=== PATIENT | female | born 1940 | race Caucasian/White ===

== ENCOUNTER 2019-10-12 13:23 | Inpatient (IN) | payer MEDICARE ==
[2019-10-12] MEDS ORDERED: Piperacillin/Tazobactam 4.5 GM VIAL ONE (13:51)
[2019-10-12] MEDS ORDERED: Sodium Chloride 0.9% 100 ML ONE (13:51)
[2019-10-12 14:11] LABS: Mean Corpuscular HGB CONC 33.6 g/dL (32.0-36.0); Mean Corpuscular Hemoglobin 32.9 pg (27.0-31.0); Mean Corpuscular Volume 97.8 fL (78.0-98.0); Mean Platelet Volume 9.3 fL (7.4-10.4); Platelet Count 68 thou/uL (130-400); Red Blood Cell (RBC) Count 3.36 mill/uL (4.20-5.40); White Blood Cell (WBC) Count 8.1 thou/uL (4.8-10.8)
--- NOTE | 2019-10-12 14:11 | RAD ---
Portable chest: HISTORY: Unresponsive COMPARISON: none FINDINGS: Lung asif are clear. Heart and mediastinum appear unremarkable. Vascularity is normal. Visualized osseous structures unremarkable. IMPRESSION: No acute finding
[2019-10-12 14:28] LABS: Band 18 % (5-11); Dohle Bodies SLIGHT; Lymphocytes 11 % (21-51); MDiff Complete? YES; Monocytes 1 % (0-10); Neutrophil 68 % (42-75); Platelet Morphology Comment Appears Decreased; Polychromasia SLIGHT = 2-3 cells (100X) (0-2/hpf); Reactive Lymphocytes 2 % (0-10); Toxic Granulation SLIGHT; Vacuoles SLIGHT
[2019-10-12 14:29] LABS: ALT (SGPT) 56 U/L (8-55); AST (SGOT) 139 U/L (5-34); Albumin 2.1 g/dL (3.4-4.8); Alkaline Phosphatase 51 U/L (40-110); Anion Gap 18 mmol/L (10-20); Bilirubin, Total 0.5 mg/dL (0.2-1.2); Calc. Creatinine Clearance 0 mL/min (70-130); Calcium 6.9 mg/dL (7.8-10.44); Carbon Dioxide 13 mmol/L (23-31); Chloride 118 mmol/L (98-107); Estimated GFR-MDRD 10; Globulin 2.6 g/dL (2.4-3.5); Glucose 98 mg/dL (83-110); Potassium 4.3 mmol/L (3.5-5.1); Protein, Total 4.7 g/dL (6.0-8.3); Sodium 145 mmol/L (136-145)
[2019-10-12 14:30] LABS: Bacteria/HPF 4+ HPF (None Seen); Bilirubin 1+ (Negative); Blood, Urine 1+ (Negative); Clarity Turbid (Clear); Glucose, Urine (Dipstick) Normal (Negative); Leukocyte 500 Leu/uL (Negative); Nitrite 1+ (Negative); Protein, Urine (Dipstick) 100 mg/dL (Neg-Trace); RBC/HPF 0-3 HPF (0-3); Urobilinogen Normal mg/dL (Less than 2); WBC/HPF Greater than 50 HPF (0-3)
[2019-10-12 14:44] LABS: BUN (Urea Nitrogen) 135 mg/dL (9.8-20.1)
--- NOTE | 2019-10-12 15:21 | CT ---
Head CT without contrast 10/12/2019: COMPARISON: 03/13/2011 HISTORY: Lupus, urinary tract infection, altered mental status and confusion TECHNIQUE: Axial CT imaging at 5 mm intervals from vertex through skull base without contrast FINDINGS: The imaged paranasal sinuses and mastoid air cells are well aerated. No displaced calvarial fracture. No intracranial hemorrhage, midline shift, mass effect, or ventricular enlargement. IMPRESSION: Stable head CT-no acute findings.
[2019-10-12] MEDS ORDERED: CCU Electrolyte Replacement 1 EACH IVPB ONE (16:53)
[2019-10-12] MEDS ORDERED: Norepinephrine 8 MG/0.9% NS 250 ML IVPB PRN (16:53)
[2019-10-12] MEDS ORDERED: SYSTANE 3.5 GM TUBE EA EYE PRN (16:53)
[2019-10-12] MEDS ORDERED: Magnesium Oxide 400 MG TAB PO PRN ×2 (16:58)
[2019-10-12] MEDS ORDERED: Potassium Phosphate 15 MMOL in Sodium Chloride 0.9% 250 ML 250 ML IV PRN (16:58)
[2019-10-12] MEDS ORDERED: Potassium Chloride 40 MEQ in Premix Bag 1 BAG IVPB PRN (16:58)
[2019-10-12] MEDS ORDERED: Potassium Phosphate 9 MMOL in Sodium Chloride 0.9% 100 ML IVPB PRN (16:58)
[2019-10-12] MEDS ORDERED: Magnesium 2 GM/50 ML 2 GM in Premix Bag 1 BAG IVPB PRN (16:58)
[2019-10-12] MEDS ORDERED: Potassium Chloride 20 MEQ TAB PO PRN (16:58)
[2019-10-12] MEDS ORDERED: Potassium Phosphate 12 MMOL in Sodium Chloride 0.9% 250 ML 250 ML IV PRN (16:58)
[2019-10-12] MEDS ORDERED: PHOS-NAK 1 PKT PACK PO PRN ×2 (16:58)
[2019-10-12] MEDS ORDERED: CCU ELECTROLYTE REPLACEMENT PROTOCOL FS PRN (16:58)
[2019-10-12] MEDS ORDERED: Potassium Chloride 40 MEQ in Sodium Chloride 0.9% 250 ML 250 ML IVPB PRN (16:58)
--- NOTE | 2019-10-12 17:04 | PDOC.FPRHP ---
- History of Present Illness Chief Complaint: AMS History of Present Illness: Pt is a 79 yo F with a history Lupus, HTN, GERD, IBS, and Dementia who presents via EMS for AMS. Pt was fine 3 weeks ago. She slowly began forgetting things and misplacing things. Last week, they went to her PCP and he told her to go to the ED. There they gave her pills (Azo) and sent her home. She progressively got worse over the last week. Today, the home health nurse came to see her. She came out after examining her and said she could not get a blood pressure and she had a fever, so they should call EMS. ED Course: EMS gave 4L of fluid on there way to the hospital. In the ED, they gave her 2 more liters. She also got Vanc and Zosyn. Cre: 4.26, LFTs elevated, UA showed LE: 500, Nitrites: 1+, Protein: 100, Bacteria: 4+. Bicarb was 13. K was 4.3 CXR: NAF CT Head: NAF Flu: Neg BCx & UCx ordered - Allergies/Adverse Reactions Allergies Allergy/AdvReac Type Severity Reaction Status Date / Time No Allergy Information Allergy Unverified 10/12/19 15:31 Available - History PMHx: HTN, Lupus GERD, IBD, Dementia PSHx: L Femur Screws FHx: HTN, Stroke, CRC, Blood Clots, DM Social: No alcohol, tobacco, or recreational drugs. - Review of Systems ROS unobtainable: due to mental status - Vital signs BP: 90/58 HR: 86 RR: 22 Tmax: 98.2 Pox: 97% on 3L Wt: 54.4 kg - Physical Exam -Constitutional: Lethargic HEENT: normocephalic and atraumatic, PERRLA, conjunctiva clear, normal nasal mucosa, oropharynx clear Neck: trachea midline, no LAD, no JVD Heart: RRR, normal S1/S2, no murmurs/rubs/gallops, pulses present, no edema Lungs: CTAB, good air movement, no rales/rhonchi, no wheezing Abdomen: soft, non-tender, bowel sounds present -Musculoskeletal: Decorticate posturing -Neurological: Unable to obtain due to AMS Skin: no rash/lesions, no jaundice Heme/Lymphatic: no unusual bruising or bleeding, no purpura, no petechia -Psychiatric: Unable to assess. FMR H&P: Results - Labs Result Diagrams: 10/12/19 13:50 10/12/19 13:50 Lab results: WBC 8.1 thou/uL (4.8-10.8) 10/12/19 13:50 Hgb 11.0 g/dL (12.0-16.0) L 10/12/19 13:50 Hct 32.8 % (36.0-47.0) L 10/12/19 13:50 MCV 97.8 fL (78.0-98.0) 10/12/19 13:50 Plt Count 68 thou/uL (130-400) L 10/12/19 13:50 Band Neuts % (Manual) 18 % (5-11) H 10/12/19 13:50 Sodium 145 mmol/L (136-145) 10/12/19 13:50 Potassium 4.3 mmol/L (3.5-5.1) 10/12/19 13:50 Chloride 118 mmol/L (98-107) H 10/12/19 13:50 Carbon Dioxide 13 mmol/L (23-31) L 10/12/19 13:50 BUN 135 mg/dL (9.8-20.1) H 10/12/19 13:50 Creatinine 4.26 mg/dL (0.6-1.1) H 10/12/19 13:50 Glucose 98 mg/dL (83-110) 10/12/19 13:50 Lactic Acid 2.0 mmol/L (0.5-2.2) 10/12/19 13:50 Calcium 6.9 mg/dL (7.8-10.44) L 10/12/19 13:50 Total Bilirubin 0.5 mg/dL (0.2-1.2) 10/12/19 13:50 AST 139 U/L (5-34) H 10/12/19 13:50 ALT 56 U/L (8-55) H 10/12/19 13:50 Alkaline Phosphatase 51 U/L (40-110) 10/12/19 13:50 Serum Total Protein 4.7 g/dL (6.0-8.3) L 10/12/19 13:50 Albumin 2.1 g/dL (3.4-4.8) L 10/12/19 13:50 Urine Ketones Negative mg/dL (Negative) 10/12/19 14:00 Urine Blood 1+ (Negative) A 10/12/19 14:00 Urine Nitrite 1+ (Negative) A 10/12/19 14:00 Ur Leukocyte Esterase 500 Sd/uL (Negative) A 10/12/19 14:00 Urine RBC 0-3 HPF (0-3) 10/12/19 14:00 Urine WBC Greater than 50 HPF (0-3) A 10/12/19 14:00 Ur Squamous Epith Cells 4-6 HPF (0-3) A 10/12/19 14:00 Urine Bacteria 4+ HPF (None Seen) A 10/12/19 14:00 FMR H&P: A/P - Problem List (1) DIMA (acute kidney injury) Current Visit: Yes Status: Acute Code(s): N17.9 - ACUTE KIDNEY FAILURE, UNSPECIFIED (2) Septic shock Current Visit: Yes Status: Acute Code(s): A41.9 - SEPSIS, UNSPECIFIED ORGANISM; R65.21 - SEVERE SEPSIS WITH SEPTIC SHOCK (3) Transaminitis Current Visit: Yes Status: Acute Code(s): R74.0 - NONSPEC ELEV OF LEVELS OF TRANSAMNS & LACTIC ACID DEHYDRGNSE (4) UTI (urinary tract infection) Current Visit: Yes Status: Acute (5) DVT (deep venous thrombosis) Current Visit: Yes Status: Acute Code(s): I82.409 - ACUTE EMBOLISM AND THOMBOS UNSP DEEP VN UNSP LOWER EXTREMITY (6) Lupus Current Visit: Yes Status: Acute Code(s): M32.9 - SYSTEMIC LUPUS ERYTHEMATOSUS, UNSPECIFIED (7) HTN (hypertension) Current Visit: Yes Status: Acute Code(s): I10 - ESSENTIAL (PRIMARY) HYPERTENSION (8) GERD (gastroesophageal reflux disease) Current Visit: Yes Status: Acute Code(s): K21.9 - GASTRO-ESOPHAGEAL REFLUX DISEASE WITHOUT ESOPHAGITIS (9) Dementia Current Visit: Yes Status: Acute Code(s): F03.90 - UNSPECIFIED DEMENTIA WITHOUT BEHAVIORAL DISTURBANCE (10) IBS (irritable bowel syndrome) Current Visit: Yes Status: Acute - Plan Pt is a 79 yo F with a history Lupus, HTN, GERD, IBS, and Dementia who presents via EMS for AMS. 1. Septic Shock 2/2 UTI UA showed LE: 500, Nitrites: 1+, Protein: 100, Bacteria: 4+ * BP: 90s/50s * Tried to put in Central line on L&R IJ, R Femoral * DVT Present in L Femoral * Given 6L between EMS & ED * Will start Levophed * Try to obtain central line again once pt is re-hydrated * LA: 2 * Ordered ABG, Coag Panel, Trop, Procal * Consulted Pulm, appreciate recs. * Currently on Vanc & Zosyn in the ED, will continue * Called pharmacy to renally dose * BCx & UCx ordered * Flu negative 2. Transaminitis AST: 139, ALT: 56 * Most likely 2/2 to Septic Shock * Will monitor 3. DVT Plt: 68 * DVT present in L femoral vein * Cre: 4.26 * B/l LE US to assess DVT 4. DIMA Cre: 4.26 * Will give her 1L * NS @ 100 5. HTN BP: 90s/50s * Will hold Carvedilol & ASA 6. Dementia Unable to assess due to unresponsiveness 7. GERD Not currently on any medications at home * Started Famotidine 8. IBS Not currently on any medications Code Status: Chemical Code Diet: NPO currently DVT PPx: SCDs GI PPx: Famotidine Lines: Peripheral, Unable to obtain central line. PCP: Bernard Beckham Dispo: Inpt ICU, LOS > 48H. Ordered ABG and consulted Pulm. Will continue with Vanc & Zosyn and continue to hydrate. FMR H&P: Upper Level - Pertinent history 79 yo F with PMH lupus, HTN, mild dementia, and frequent UTIs presents from home. Home nurse came to check on her, and sent her to the hospital because she could not get a blood pressure and she was having a fever. She was recently seen at [facility] for UTI, and sent home and azo per family. Her mentation and strength have been worsening for the past 3 weeks. EMS: she was tachycardic, minimally responsive. With EMS and in the ED, she was given 6 L of NS. Her blood pressures were borderline with MAPs in the 60s to 70s, central line was attempted but unsuccessful. She was started on vanc and zosyn. - Pertinent findings General: Weak, pale elderly female. Keeps her eyes closed during exam. Lungs: BCTA Heart: RRR, no murmurs Extremities: Pale, cool, cap refill > 2 seconds - Plan Date/Time: 10/12/19 1700 Lucy Ochoa MD, have evaluated this patient and agree with findings/plan as outlined by video editing internship resident. Pertinent changes/additions are listed here. Septic Shock 2/2 UTI -UA positive. Severe DIMA, elevated liver enzymes. Influenza negative. Maps borderline in 60s-70s. -Blood and urine cultures pending -Continue vanc and zosyn, pharmacy to dose both due to severe DIMA -Trop pending, procal pending -Central line unsuccessful: give addition 1 L NS, then NS @ 100, may need to attempt central line after more fluids -continue to monitor blood pressures, start levophed through peripheral line -Admit to CCU, pulm Dr. Louis consulted -Stat ABG pending -Guarded prognosis -AM labs pending DVT LLE -Coags pending -official US BLE pending -consider anticoagulation, however low platelets (68) and severe DIMA in setting of shock liver Severe DIMA -Cr 4.26 -s/p 6 L IVF -1 additional unit NS, then NS @ 100 ml/hr Thrombocytopenia -Consider possible DIC -Plt 68 -Coags pending Code: chemical code only Dispo: Guarded. Admit to CCU. Continue vanc and zosyn. Blood and urine cultures pending. Monitor blood pressures, consider attempting central line again after more fluids. Addendum - Attending - Attending Attestation Date/Time: 10/12/19 191 I personally evaluated the patient and discussed the management with Dr. Jhon Suazo I agree with the History, Examination, Assessment and Plan documented above with any addition or exceptions noted below - 79 yo F with a history Lupus, HTN , GERD, IBS, and Dementia who presents via EMS for AMS. Pt was fine 3 weeks ago. She slowly began forgetting things and misplacing things. Last week, they went to her PCP and he told her to go to the ED. There they gave her pills (Azo ) and sent her home. She progressively got worse over the last week. Today, the home health nurse came to see her. She came out after examining her and said she could not get a blood pressure and she had a fever, so they should call EMS. Patient received 4L crystalloid via EMS and additional 2 L in ER. PMH/PSH/ Meds/SH reviewed with resdient and agree with documentation. P80 BP 96/62 RR21 94% Exam repeated by me and agree with resident's findings except has multiple areas of bruising including neck, forearms and deep tissue injury on right medial heel and buttocks. Labs: Bg=086, K=4.3, Qy=244, CO2=13, BUN/Py=059/ 4.26, Gluc=98, WBC=8.1, H/H=11/32.8, Plt=68, Diff=68N/18B/11L, Procal=1.68, Lactic acid=2.0, PT=18.8, INR=1.6, PTT=28, AST/JZK=245/56, U/A= (+) nitrote, (+ ) blood, >50 WBC, 4+ bact; CXR- negative A/P: 1) Severe sep[sis secondary to UTI - Admit to ICU; hypotension improved with fluids; continue to monitor closely. Midline access for pressors if needed. Blood/urine cultures pending. Continue Vanc and Zosyn. 2) DIMA - continue IVF; monitor I/Os 3) Left DVT - will start heparin per protocol. 4) Elevated transminases- most likely secondary to shock liver; continue to monitor closely.
[2019-10-12 17:37] LABS: INR-International Normal Ratio 1.6; Prothrombin Time 18.8 SEC (12.0-14.7)
[2019-10-12 17:44] LABS: Troponin I 0.151 ng/mL (< 0.028)
[2019-10-12] MEDS ORDERED: Piperacillin/Tazobactam 3.375 GM in Sodium Chloride 0.9% 100 ML IVPB SCH (18:00)
--- NOTE | 2019-10-12 18:21 | ULT ---
BILATERAL LOWER EXTREMITY VENOUS DOPPLER WITH SPECTRAL ANALYSIS AND COLOR FLOW EVALUATION: 10/12/19 HISTORY: Patient with confusion and altered mental status. Suspected DVT in lower extremity. FINDINGS: Veras scale, color flow, Doppler evaluation, and spectral analysis of the bilateral lower extremity ve nous structures is performed with 2D imaging. Bilateral lower extremity femoral, superficial femoral, popliteal, most proximal greater saphenous and profunda femoral veins are imaged. There is increased luminal echogenicity and decreased lumen compressibility as well as absence of flaca w seen within the left lower extremity common femoral and superficial femoral as well as profunda fem oral veins. There is minimal flow seen suggesting occlusive DVT. There is minimal flow seen within the left lower extremity popliteal and posterior tibial veins suggesting nonocclusive thrombus at these levels. There is decreased lumen compressibility and echogenic material along the dependent portion of the wa ll of the right lower extremity common femoral vein suggestive of nonocclusive DVT. The exact age of this thrombus is difficult to determine. There is otherwise normal lumen compressibility and flow thr oughout the remainder of the right lower extremity deep venous structures. IMPRESSION: 1. Occlusive DVT involving the left lower extremity common femoral, superficial femoral, and pro murtzaa femoral veins with nonocclusive thrombus in the left lower extremity popliteal and likely poste rior tibial veins. 2. Nonocclusive thrombus right lower extremity common femoral vein with echogenic material seen along the posterior aspect of the lumen of the common femoral vein, and the exact age of this thrombu s is difficult to determine. 3. These findings were discussed with Suyapa, [facility] as well as the attending physician at this time by Maryanne, the podiatric surgeon. This is doc umented in the patient's jacket with date of 10/12/19 and time stamp of 1740 hours. POS: [facility]
[2019-10-12] MEDS ORDERED: Sodium Chloride 0.9% 1,000 ML IV SCH (18:47)
[2019-10-12] MEDS ORDERED: Acetaminophen 325 MG TAB PO PRN (18:47)
[2019-10-12] MEDS ORDERED: Ondansetron ODT 4 MG TAB PO PRN (18:47)
[2019-10-12] MEDS ORDERED: Acetaminophen 650 MG Suppository PR PRN (18:47)
[2019-10-12] MEDS ORDERED: Heparin 25,000 units/D5W 500 ML IVPB SCH (19:00)
[2019-10-12] MEDS ORDERED: Heparin 10,000 UNITS/ 10 ML VIAL SLOW IVP SCH (19:00)
--- NOTE | 2019-10-12 19:01 | PDOC.BPN ---
- Brief Progress Note Checked on patient since arrival to CCU. Peaked t waves noted on telemetry. EKG and ABG ordered. Heparin ordered for DVT therapy per protocol. Midline IV access ordered. Care plan and orders discussed with nurses and RT.
[2019-10-12 19:27] LABS: Actual Bicarbonate (HCO3a) 12.3 mEq/L (22-28); Base Excess (BEa) -12.9 mEq/L (-2.0 to +3.0); CO2 Tension 26.7 mmHg (35.0-45.0); Carboxyhemoglobin (COHb) 0.5 gm% (0.0-3.0); O2 Tension (PaO2) 70.6 mmHg (> 70.0); Potassium - ABG Lab 3.64 mmol/L (3.70-5.30); pH, Arterial 7.28 (7.35-7.45)
[2019-10-12 19:32] LABS: ALV-art Gradient 95.665 (0-20); Puncture Site RBR
[2019-10-12] MEDS: Famotidine 20 MG TAB PO SCH (20:03)
[2019-10-12] MEDS: Sodium Bicarbonate 100 MEQ in Sodium Chloride 0.45% 1,000 ML IV SCH ×3 (20:23→22:00)
[2019-10-12 20:32] LABS: Hemoglobin 10.9 g/dL (12.0-16.0); Platelet Count 69 thou/uL (130-400)
[2019-10-12 20:37] LABS: INR-International Normal Ratio 1.7; PTT 31.2 SEC (22.9-36.1); Prothrombin Time 19.9 SEC (12.0-14.7)
--- NOTE | 2019-10-12 20:37 | CON ---
DATE OF CONSULTATION: HISTORY OF PRESENT ILLNESS: Nancy Munoz is a 79-year-old female, who presented to the ER after home health nurse encouraged family to take her to the emergency room. She had hypotension and altered mental status. Her hypotension is improved with aggressive volume resuscitation, but still has an altered mental status. She was recently treated at [facility] for UTI. She has sludge in her Jacobo. Urinalysis showed greater than 50 white cells per high-powered field. She has been admitted with a tentative diagnosis of urinary tract sepsis. Multiple attempts at getting central venous access were unsuccessful. A clot was identified in the femoral vein on both lower extremities. Internal jugular attempts were unsuccessful. They could cannulate the internal jugular vein I am told, but blood will quickly clot off. Nurses are attempting to get a midline. She does have some peripheral access, but very small IVs. PAST MEDICAL HISTORY: She has received her care at [facility] prior to this admission, so there is no recent past medical history at this hospital. In the [facility], she was hospitalized here in 2010 with near syncope associated with palpitations. She has a history of hypertension, reflux disease, irritable bowel, migraine headaches, and degenerative arthritis. She has had a tubal ligation, tonsillectomy, adenoidectomy, lysis of pelvic adhesions, and bunionectomy in the past. ALLERGIES: OLD RECORDS SHOW ALLERGIES TO CEPHALOSPORINS, SULFA, AND QUINOLONES. FAMILY HISTORY: Positive for vascular disease and cancer. SOCIAL HISTORY: According to old record, she was a smoker and drinker. She is here in 2010, she is living in [place]. She is and her retired. PHYSICAL EXAMINATION: VITAL SIGNS: Currently, her blood pressure is in mid 90s, heart rates in 100, respiratory rates in the 20s. HEENT: She is in no distress. She has her eyes closed. She did not open her eyes with stimulation. NECK: Without lymphadenopathy. LUNGS: Remarkable for clear breath sounds. HEART: Regular rhythm. ABDOMEN: Nondistended, but firm. DIAGNOSTIC DATA: Chest x-ray is clear. Venogram showed bilateral lower extremity deep vein thrombi and heparin drip is being started. LABORATORY DATA: White count 8.1, hemoglobin 11.0, platelets 68,000. Sodium 145, potassium 4.3, chloride 118, bicarb 13, BUN 135, creatinine 4.26. Blood gas shows pH 7.28, CO2 of 26, PO2 of 70. Some bicarb will be infused slowly through piggyback. IMPRESSION: 1. Intravascular volume depletion on top of what may be urinary tract sepsis given her recent history and the appearance of her urine. 2. Metabolic acidosis secondary to acute renal insufficiency on top of probable chronic kidney disease combined with low-flow state secondary to intravascular volume depletion and sepsis. 3. She is a do not intubate. The patient can code only. Does not appear that we need pressors at this point. I agree with broad antimicrobial therapy and heparin drip. We will follow along with the other physician. Job ID: [id number]
[2019-10-12] MEDS: Sodium Chloride 0.9% 1,000 ML IV SCH (20:41)
[2019-10-12] MEDS: Famotidine/PF 20 mg/2ml Vial SLOW IVP SCH (20:47)
[2019-10-12 20:58] LABS: Troponin I 0.413 ng/mL (< 0.028)
[2019-10-12] MEDS: Piperacillin/Tazobactam 2.25 GM in Sodium Chloride 0.9% 100 ML IVPB SCH (22:50)
--- NOTE | 2019-10-13 00:03 | ULT ---
RENAL SONOGRAM: 10/12/19 HISTORY: UTI, sepsis. COMPARISON: None. FINDINGS: The right kidney measures 10 cm x 5.3 cm. There is an anechoic cystic structure at the inferior pole right kidney measuring 3.2 cm demonstrating characteristics most compatible with a cyst. No hydroneph rosis or renal calculus is seen on the right. The left kidney measures 9.7 cm x 5.6 cm. No renal mass, renal calculus or hydronephrosis is seen on the left. Jacobo catheter is present within the urinary bladder, and the urinary bladder is mostly decompressed. IMPRESSION: 1. No evidence of hydronephrosis. 2. Right renal cyst. POS: [facility]
[2019-10-13 03:29] LABS: Hemoglobin 10.1 g/dL (12.0-16.0); MDiff Complete? YES; Mean Corpuscular HGB CONC 33.7 g/dL (32.0-36.0); Mean Corpuscular Hemoglobin 32.7 pg (27.0-31.0); Mean Corpuscular Volume 97.1 fL (78.0-98.0); Platelet Count 65 thou/uL (130-400); RBC Distribution Width 12.1 % (11.5-14.5); Red Blood Cell (RBC) Count 3.08 mill/uL (4.20-5.40); White Blood Cell (WBC) Count 10.1 thou/uL (4.8-10.8)
[2019-10-13 03:30] LABS: Band 13 % (5-11); Hypochromia SLIGHT = 6-15 cells (100X) (0-5/hpf); Lymphocytes 4 % (21-51); Monocytes 1 % (0-10); Neutrophil 82 % (42-75); Platelet Morphology Comment Appears Decreased
[2019-10-13 03:34] LABS: Troponin I 0.283 ng/mL (< 0.028)
[2019-10-13 03:35] LABS: ALT (SGPT) 215 U/L (8-55); AST (SGOT) 497 U/L (5-34); Albumin 1.7 g/dL (3.4-4.8); Alkaline Phosphatase 57 U/L (40-110); Anion Gap 10 mmol/L (10-20); BUN (Urea Nitrogen) 120 mg/dL (9.8-20.1); Bilirubin, Total 0.3 mg/dL (0.2-1.2); Calc. Creatinine Clearance 13 mL/min (70-130); Calcium 6.7 mg/dL (7.8-10.44); Carbon Dioxide 19 mmol/L (23-31); Chloride 121 mmol/L (98-107); Estimated GFR-MDRD 17; Globulin 2.3 g/dL (2.4-3.5); Glucose 114 mg/dL (83-110); Potassium 3.3 mmol/L (3.5-5.1); Sodium 147 mmol/L (136-145)
[2019-10-13 03:53] LABS: PTT Greater than 250.0 SEC (22.9-36.1)
[2019-10-13] MEDS: Sodium Chloride 0.9% 1,000 ML IV SCH ×2 (05:09→15:22)
[2019-10-13] MEDS: Piperacillin/Tazobactam 2.25 GM in Sodium Chloride 0.9% 100 ML IVPB SCH ×3 (05:09→21:35)
[2019-10-13 06:35] LABS: Magnesium 1.9 mg/dL (1.6-2.6); Phosphorus 4.2 mg/dL (2.3-4.7)
--- NOTE | 2019-10-13 07:56 | PRG ---
DATE OF SERVICE: 10/13/2019 SUBJECTIVE: This patient remains in the CCU. She is on a heparin drip. She does not talk very much. She is in pain throughout. OBJECTIVE: VITAL SIGNS: On exam, temperature is 98.8, pulse 74, and blood pressure 82/47. Intake for 24 hours 2415, output 1140, not including the amount administered prior to admission. HEENT: Marked for bitemporal wasting. Oropharynx is dry. NECK: No adenopathy or JVD. LUNGS: Clear to auscultation. CARDIAC: S1 and S2. Regular. ABDOMEN: Soft and nontender to palpation. EXTREMITIES: She has pressure ulcers over both heels that were present at the time of admission. LABORATORY DATA: White count 10.1, hematocrit 29.9, and platelet count 65. PTT is 112.5. Sodium 147, potassium 3.3, chloride 121, CO2 of 19, BUN 120, creatinine 2.6, and glucose 114. AST 497, ALT 215. ASSESSMENT: 1. Bilateral deep venous thrombosis. 2. Urosepsis. 3. Severely volume depleted. 4. Thrombocytopenia. RECOMMENDATIONS: 1. We would consider changing the patient to Arixtra given the patient is thrombocytopenic and on heparin. The alternative would be to watch the platelet count very closely. 2. Continue hydration. 3. Continue antibiotics for presumed sepsis and consolidate once results of cultures are known. Job ID: [id number]
--- NOTE | 2019-10-13 08:00 | PDOC.FM ---
- Subjective Subjective: no acute events overnight. Pt has no complaints but seems to be delirious - Objective Vital Signs & Weight: Vital Signs (12 hours) Temp 10/12/19 21:00 94.3 F L Weight Weight 53.8 kg Most Recent Monitor Data Heart Rate from ECG 74 NIBP 82/47 NIBP BP-Mean 58 Respiration from ECG 18 SpO2 100 I&O: 10/12/19 10/13/19 10/14/19 06:59 06:59 06:59 Intake Total 2415 Output Total 1140 Balance 1275 Result Diagrams: 10/13/19 03:05 10/13/19 03:05 Phys Exam - Physical Examination Constitutional: NAD HEENT: moist MMs, sclera anicteric Neck: no JVD, supple Respiratory: no wheezing, no rales Cardiovascular: RRR, no significant murmur Gastrointestinal: soft, no distention Musculoskeletal: no edema, pulses present Neurological: non-focal, moves all 4 limbs Deviation from normal: A and O to person only Skin: no rash, normal turgor Dx/Plan (1) DIMA (acute kidney injury) Code(s): N17.9 - ACUTE KIDNEY FAILURE, UNSPECIFIED Status: Acute (2) DVT (deep venous thrombosis) Code(s): I82.409 - ACUTE EMBOLISM AND THOMBOS UNSP DEEP VN UNSP LOWER EXTREMITY Status: Acute (3) Dementia Code(s): F03.90 - UNSPECIFIED DEMENTIA WITHOUT BEHAVIORAL DISTURBANCE Status: Acute (4) GERD (gastroesophageal reflux disease) Code(s): K21.9 - GASTRO-ESOPHAGEAL REFLUX DISEASE WITHOUT ESOPHAGITIS Status: Acute (5) HTN (hypertension) Code(s): I10 - ESSENTIAL (PRIMARY) HYPERTENSION Status: Acute (6) IBS (irritable bowel syndrome) Status: Acute (7) Septic shock Code(s): A41.9 - SEPSIS, UNSPECIFIED ORGANISM; R65.21 - SEVERE SEPSIS WITH SEPTIC SHOCK Status: Acute (8) Transaminitis Code(s): R74.0 - NONSPEC ELEV OF LEVELS OF TRANSAMNS & LACTIC ACID DEHYDRGNSE Status: Acute (9) UTI (urinary tract infection) Status: Acute - Plan Plan: Septic Shock 2/2 UTI A- UA positive. Severe DIMA, elevated liver enzymes. Influenza negative. Maps borderline in 60s-70s on admission which have improved. Blood and urine cultures pending. Central line unsuccessful: give addition 1 L NS, then NS @ 100 , may need to attempt central line after more fluids P- Continue vanc and zosyn, pharmacy to dose both due to severe DIMA -continue to monitor blood pressures -LR at 100hr -f/u cultures -will start pressors if pt worsens -Guarded prognosis DVT LLE A- US shows bilateral femoral DVTs. L is completely occluded, R is partial. heparin protocol started. PTT was supratherapeutic early this AM but in range on recheck. P- continue heparin per protocol. As kidney function improves may switch to fondaparineaux Severe DIMA A- 2/2 septic shock. Improved. Cr 4.26 -> 2.6. s/p 7 L IVF P- continue NS @ 100 ml/hr -continue to monitor Thrombocytopenia A- Consider possible DIC. Plt 68 P- will continue to monitor, adjust anticoagulation as necessary Transaminitis -likely 2/2 septic shock. Will continue to monitor Dementia -MD aware GERD -continue famotidine Code: chemical code only Dispo: Guarded. Admit to CCU. Continue vanc and zosyn. Blood and urine cultures pending. Monitor blood pressures, consider attempting central line again after more fluids. Addendum - Attending - Attending Attestation Date/Time: 10/13/19 1121 I personally evaluated the patient and discussed the management with Dr. Kidd. I agree with the History, Examination, Assessment and Plan documented above with any addition or exceptions noted below. patient will answer yes/no to questions this morning but not otherwise conversational. MAP stable off pressors. Continue abx and consider adding steroids if BP remains low. Will keep heparin on for now and closely monitor platelet count. Patient is stabilizing but overall disposition is guarded.
[2019-10-13] MEDS ORDERED: Vancomycin HCl 1 GM in Premix Bag 1 BAG IVPB SCH (14:30)
[2019-10-13 15:00] LABS: PTT 122.3 SEC (22.9-36.1)
[2019-10-13] MEDS ORDERED: Vancomycin HCl 500 MG in Sodium Chloride 0.9% 100 ML IVPB SCH (16:00)
[2019-10-13] MEDS: Famotidine 20 MG TAB PO SCH (21:34)
[2019-10-13] MEDS: Famotidine/PF 20 mg/2ml Vial SLOW IVP SCH (21:34)
[2019-10-14] MEDS: Sodium Chloride 0.9% 1,000 ML IV SCH (01:34)
[2019-10-14] MEDS: Piperacillin/Tazobactam 2.25 GM in Sodium Chloride 0.9% 100 ML IVPB SCH ×3 (05:51→21:19)
[2019-10-14 06:38] LABS: Band 18 % (5-11); Hemoglobin 10.2 g/dL (12.0-16.0); Lymphocytes 5 % (21-51); MDiff Complete? YES; Mean Corpuscular HGB CONC 33.6 g/dL (32.0-36.0); Mean Corpuscular Hemoglobin 32.5 pg (27.0-31.0); Mean Corpuscular Volume 96.9 fL (78.0-98.0); Mean Platelet Volume 9.5 fL (7.4-10.4); Monocytes 5 % (0-10); Neutrophil 72 % (42-75); Platelet Count 77 thou/uL (130-400); Platelet Morphology Comment Appears Decreased; RBC Distribution Width 12.2 % (11.5-14.5); Red Blood Cell (RBC) Count 3.14 mill/uL (4.20-5.40); White Blood Cell (WBC) Count 7.9 thou/uL (4.8-10.8)
[2019-10-14 06:41] LABS: ALT (SGPT) 130 U/L (8-55); AST (SGOT) 141 U/L (5-34); Albumin 1.8 g/dL (3.4-4.8); Alkaline Phosphatase 54 U/L (40-110); Anion Gap 11 mmol/L (10-20); BUN (Urea Nitrogen) 102 mg/dL (9.8-20.1); Bilirubin, Total 0.4 mg/dL (0.2-1.2); Calc. Creatinine Clearance 21 mL/min (70-130); Calcium 7.8 mg/dL (7.8-10.44); Carbon Dioxide 18 mmol/L (23-31); Chloride 127 mmol/L (98-107); Estimated GFR-MDRD 25; Globulin 2.5 g/dL (2.4-3.5); Glucose 102 mg/dL (83-110); Potassium 3.9 mmol/L (3.5-5.1); Protein, Total 4.3 g/dL (6.0-8.3); Sodium 152 mmol/L (136-145)
--- NOTE | 2019-10-14 07:43 | PDOC.FM ---
- Subjective Subjective: Seen at bedside this morning. Pt is arousable, but goes back to sleep when not being questioned. There were no acute events over night. No concerns from nursing. - Objective Vital Signs & Weight: Vital Signs (12 hours) Pulse Ox 10/13/19 20:00 100 Weight Admit Weight 53.524 kg Weight 54.7 kg Most Recent Monitor Data Heart Rate from ECG 73 NIBP 104/62 NIBP BP-Mean 76 Respiration from ECG 16 SpO2 100 I&O: 10/13/19 10/14/19 10/15/19 06:59 06:59 06:59 Intake Total 2415 3304.0 Output Total 1140 1275 Balance 1275 2029.0 Result Diagrams: 10/14/19 05:24 10/14/19 05:24 Phys Exam - Physical Examination Constitutional: NAD HEENT: moist MMs Respiratory: clear to auscultation bilateral Cardiovascular: RRR, no significant murmur Gastrointestinal: no distention Musculoskeletal: no edema Neurological: moves all 4 limbs Deviation from normal: Appears confused. Dx/Plan (1) Hyperchloremic metabolic acidosis Code(s): E87.2 - ACIDOSIS Status: Acute (2) Hypernatremia Code(s): E87.0 - HYPEROSMOLALITY AND HYPERNATREMIA Status: Acute (3) DIMA (acute kidney injury) Code(s): N17.9 - ACUTE KIDNEY FAILURE, UNSPECIFIED Status: Acute (4) DVT (deep venous thrombosis) Code(s): I82.409 - ACUTE EMBOLISM AND THOMBOS UNSP DEEP VN UNSP LOWER EXTREMITY Status: Acute (5) Dementia Code(s): F03.90 - UNSPECIFIED DEMENTIA WITHOUT BEHAVIORAL DISTURBANCE Status: Acute (6) GERD (gastroesophageal reflux disease) Code(s): K21.9 - GASTRO-ESOPHAGEAL REFLUX DISEASE WITHOUT ESOPHAGITIS Status: Acute (7) HTN (hypertension) Code(s): I10 - ESSENTIAL (PRIMARY) HYPERTENSION Status: Acute (8) Septic shock Code(s): A41.9 - SEPSIS, UNSPECIFIED ORGANISM; R65.21 - SEVERE SEPSIS WITH SEPTIC SHOCK Status: Acute (9) Transaminitis Code(s): R74.0 - NONSPEC ELEV OF LEVELS OF TRANSAMNS & LACTIC ACID DEHYDRGNSE Status: Acute (10) UTI (urinary tract infection) Status: Acute - Plan Plan: Septic Shock 2/2 UTI - BP has improved for the past 24 hours. - Urine culture shows klebsiella. 1/2 blood cultures positive at this time. Will continue IV abx until blood cultures result DVT LLE - there was some concern yesterday for low platelets, however this has stabilized. Continue IV heparin at this time. When ok for PO will consider changing to DOAC Severe DIMA - Improving, due to NAGMA with hypernatremia change from NS to D5W Hypernatremia - free water deficit of 2.4L. Plan to replace with D5W as above Hyperchoremic acidosis - as above Thrombocytopenia Stable Transaminitis -likely 2/2 septic shock. Improving Dementia GERD -continue famotidine Code: chemical code only Dispo: Pt appears to be slowly improving and vitals have stabilized. Continue to monitor in ICU today, may be stable to transfer out of ICU later today
[2019-10-14] MEDS: Dextrose 5% in Water 1,000 ML IV SCH ×2 (08:09→18:28)
--- NOTE | 2019-10-14 08:13 | PRG ---
DATE OF SERVICE: 10/14/2019 SUBJECTIVE: The patient remains in the ICU on a heparin drip. She does not really say much that is coherent when I ask her questions. OBJECTIVE: VITAL SIGNS: Temperature 96.3, pulse 73, blood pressure 104/62. She is currently on heparin drip at 12 units/kg per hour. Total intake for 24 hour 3304, output 1275. HEENT: Unremarkable. NECK: No adenopathy or JVD. CHEST: Clear to auscultation. CARDIAC: S1, S2. Regular. ABDOMEN: Soft, nontender. EXTREMITIES: No edema. LABORATORY DATA: White blood cell count 7.9, hematocrit 30, and platelet count 77. PTT is 94.5. Sodium 152, potassium 3.9, chloride 127, CO2 of 18, BUN 102, creatinine 1.9, glucose 102. ASSESSMENT: 1. Deep venous thrombosis. 2. Volume depleted. 3. Urosepsis. 4. Thrombocytopenia. PLAN: 1. Again, would encourage converting the patient over to Arixtra instead of using heparin, given the patient's thrombocytopenia. 2. Would stop the normal saline and give D5W to see if we can correct the hypernatremia. 3. Move to [facility]. Job ID: [id number]
[2019-10-14 12:59] LABS: Anion Gap 14 mmol/L (10-20); BUN (Urea Nitrogen) 97 mg/dL (9.8-20.1); Calc. Creatinine Clearance 23 mL/min (70-130); Calcium 7.7 mg/dL (7.8-10.44); Carbon Dioxide 12 mmol/L (23-31); Estimated GFR-MDRD 27; Glucose 142 mg/dL (83-110); Potassium 3.8 mmol/L (3.5-5.1); Sodium 150 mmol/L (136-145)
[2019-10-14 13:04] LABS: Chloride 128 mmol/L (98-107)
--- NOTE | 2019-10-14 15:18 | RAD ---
EXAM: Single view of the abdomen HISTORY: Dobbhoff placement COMPARISON: None FINDINGS: Single view of the abdomen shows a nonspecific, nonobstructive bowel gas pattern. A Dobbhof f tube is seen curled in the stomach. No suspicious calcifications are seen. The bones are unremarkable. IMPRESSION: Dobbhoff tube located in the stomach
[2019-10-14 17:51] LABS: Anion Gap 13 mmol/L (10-20); BUN (Urea Nitrogen) 93 mg/dL (9.8-20.1); Calc. Creatinine Clearance 23 mL/min (70-130); Calcium 7.8 mg/dL (7.8-10.44); Carbon Dioxide 13 mmol/L (23-31); Estimated GFR-MDRD 28; Glucose 161 mg/dL (83-110); Potassium 4.2 mmol/L (3.5-5.1); Sodium 148 mmol/L (136-145)
[2019-10-14 18:03] LABS: Chloride 126 mmol/L (98-107)
[2019-10-14] MEDS: Famotidine 20 MG TAB PO SCH (21:19)
[2019-10-14] MEDS: Apixaban 5 MG TAB PER TUBE SCH (21:19)
[2019-10-14] MEDS: Famotidine/PF 20 mg/2ml Vial SLOW IVP SCH (21:19)
[2019-10-15 05:01] LABS: ALT (SGPT) 96 U/L (8-55); AST (SGOT) 81 U/L (5-34); Albumin 1.8 g/dL (3.4-4.8); Alkaline Phosphatase 45 U/L (40-110); Anion Gap 10 mmol/L (10-20); BUN (Urea Nitrogen) 88 mg/dL (9.8-20.1); Bilirubin, Total 0.4 mg/dL (0.2-1.2); Calc. Creatinine Clearance 25 mL/min (70-130); Calcium 7.6 mg/dL (7.8-10.44); Carbon Dioxide 18 mmol/L (23-31); Chloride 122 mmol/L (98-107); Estimated GFR-MDRD 30; Globulin 2.5 g/dL (2.4-3.5); Glucose 196 mg/dL (83-110); Potassium 3.2 mmol/L (3.5-5.1); Protein, Total 4.3 g/dL (6.0-8.3); Sodium 147 mmol/L (136-145)
[2019-10-15 05:08] LABS: Hemoglobin 9.6 g/dL (12.0-16.0); MDiff Complete? YES; Mean Corpuscular HGB CONC 34.2 g/dL (32.0-36.0); Mean Corpuscular Hemoglobin 32.8 pg (27.0-31.0); Mean Platelet Volume 9.7 fL (7.4-10.4); Platelet Count 82 thou/uL (130-400); RBC Distribution Width 12.3 % (11.5-14.5); Red Blood Cell (RBC) Count 2.94 mill/uL (4.20-5.40); White Blood Cell (WBC) Count 6.2 thou/uL (4.8-10.8)
[2019-10-15 05:09] LABS: Band 13 % (5-11); Lymphocytes 8 % (21-51); Metamyelocyte 1 % (0-0); Monocytes 3 % (0-10); Neutrophil 75 % (42-75); Platelet Morphology Comment Appears Decreased; RBC Morphology Normal
[2019-10-15] MEDS: Piperacillin/Tazobactam 2.25 GM in Sodium Chloride 0.9% 100 ML IVPB SCH ×3 (05:13→21:18)
[2019-10-15] MEDS: Dextrose 5% in Water 1,000 ML IV SCH ×3 (05:13→15:10)
--- NOTE | 2019-10-15 07:28 | PDOC.FM ---
- Subjective Subjective: Seen at bedside this morning resting comfortably, though difficult to arouse and does not respond other than grunts. No acute events over night. Patient is tolerating NG well. No concerns from nursing - Objective Vital Signs & Weight: Vital Signs (12 hours) Pulse Ox 10/14/19 20:00 96 Weight Admit Weight 53.524 kg Weight 55.6 kg Most Recent Monitor Data Heart Rate from ECG 79 NIBP 117/65 NIBP BP-Mean 82 Respiration from ECG 16 SpO2 99 I&O: 10/14/19 10/15/19 10/16/19 06:59 06:59 06:59 Intake Total 3304.0 2676.3 Output Total 1275 1257 Balance 2029.0 1419.3 Result Diagrams: 10/15/19 04:25 10/15/19 04:25 Phys Exam - Physical Examination HEENT: moist MMs Respiratory: clear to auscultation bilateral Cardiovascular: RRR, no significant murmur Gastrointestinal: non-tender, no distention Musculoskeletal: no edema Will withdraw from pain. Normal reflexes Deviation from normal: Patient is difficult to arouse. Does not respond to questions. Skin: no rash Dx/Plan (1) Hyperchloremic metabolic acidosis Code(s): E87.2 - ACIDOSIS Status: Acute (2) Hypernatremia Code(s): E87.0 - HYPEROSMOLALITY AND HYPERNATREMIA Status: Acute (3) DIMA (acute kidney injury) Code(s): N17.9 - ACUTE KIDNEY FAILURE, UNSPECIFIED Status: Acute (4) DVT (deep venous thrombosis) Code(s): I82.409 - ACUTE EMBOLISM AND THOMBOS UNSP DEEP VN UNSP LOWER EXTREMITY Status: Acute (5) Dementia Code(s): F03.90 - UNSPECIFIED DEMENTIA WITHOUT BEHAVIORAL DISTURBANCE Status: Acute (6) GERD (gastroesophageal reflux disease) Code(s): K21.9 - GASTRO-ESOPHAGEAL REFLUX DISEASE WITHOUT ESOPHAGITIS Status: Acute (7) HTN (hypertension) Code(s): I10 - ESSENTIAL (PRIMARY) HYPERTENSION Status: Acute (8) Septic shock Code(s): A41.9 - SEPSIS, UNSPECIFIED ORGANISM; R65.21 - SEVERE SEPSIS WITH SEPTIC SHOCK Status: Acute (9) Transaminitis Code(s): R74.0 - NONSPEC ELEV OF LEVELS OF TRANSAMNS & LACTIC ACID DEHYDRGNSE Status: Acute (10) UTI (urinary tract infection) Status: Acute (11) Hypoalbuminemia Code(s): E88.09 - OTH DISORDERS OF PLASMA-PROTEIN METABOLISM, NEC Status: Acute - Plan Plan: Hypernatremia - Most likely related to NS - resolving. Continue D5W until resolution. Recheck labs this afternoon. Hyperchoremic acidosis - as above Klebsiella bacteremia - 1/2 positive, however same as urine cx. - ID has been consulted, continue abx Hypoalbuminemia - likely related to malnutrition. - will need to start NG feeds soon if mental status does not improve. Dietary has been consulted. Septic Shock 2/2 UTI, resolved - BP stable - continue IV abx DVT LLE - Continue DOAC via NG Severe DIMA - Improving Thrombocytopenia - Stable Transaminitis -likely 2/2 septic shock. Improving Dementia GERD -continue famotidine Code: chemical code only Dispo: Pt appears to be slowly improving and vitals have stabilized. Continue to monitor in ICU today, may be stable to transfer out of ICU later today
[2019-10-15 07:44] LABS: Phosphorus 2.8 mg/dL (2.3-4.7)
--- NOTE | 2019-10-15 08:22 | PRG ---
DATE OF SERVICE: 10/15/2019 SUBJECTIVE: The patient remains in the ICU, pending transfer to the floor. There has been no acute changes overnight. She has had an NG tube inserted for the purpose of getting enteral tube feeds. OBJECTIVE: VITAL SIGNS: On examination, temperature 97.0, pulse 63, and blood pressure 113/68. HEENT: Unremarkable except for the NG tube. NECK: No adenopathy or JVD. CHEST: Clear to auscultation. CARDIAC: S1 and S2 regular. ABDOMEN: Soft. EXTREMITIES: Edematous. LABORATORY DATA: White blood cell count 6.2, hematocrit 28.2, and platelet count 82. Sodium 147, potassium 3.2, chloride 122, CO2 of 18, BUN 88, creatinine 1.6, glucose 196, and albumin 1.8. ASSESSMENT: 1. Deep venous thrombosis. 2. Volume depletion. 3. Severe protein-calorie malnutrition. 4. Urosepsis. 5. Thrombocytopenia. PLAN: The patient is currently on Eliquis for treatment of the DVT. She has been started on tube feeds. She remains on Zosyn for the urosepsis. She has transfer orders out to the floor. I think she could probably go to Medical. Job ID: [id number]
[2019-10-15] MEDS: Apixaban 5 MG TAB PER TUBE SCH ×2 (08:24→21:18)
[2019-10-15 13:13] LABS: Anion Gap 13 mmol/L (10-20); BUN (Urea Nitrogen) 79 mg/dL (9.8-20.1); Calc. Creatinine Clearance 27 mL/min (70-130); Calcium 7.8 mg/dL (7.8-10.44); Carbon Dioxide 14 mmol/L (23-31); Chloride 121 mmol/L (98-107); Estimated GFR-MDRD 32; Glucose 179 mg/dL (83-110); Potassium 4.2 mmol/L (3.5-5.1); Sodium 144 mmol/L (136-145)
[2019-10-15] MEDS: Famotidine/PF 20 mg/2ml Vial SLOW IVP SCH (21:18)
[2019-10-15] MEDS: Famotidine 20 MG TAB PO SCH (21:18)
[2019-10-16] MEDS: Piperacillin/Tazobactam 2.25 GM in Sodium Chloride 0.9% 100 ML IVPB SCH ×3 (05:38→20:27)
[2019-10-16] MEDS: Dextrose 5% in Water 1,000 ML IV SCH (05:38)
[2019-10-16 05:58] LABS: #Lymphocytes 0.8 thou/uL (1.20-3.40); #Monocytes 0.2 thou/uL (0.11-0.59); #Neutrophils 5.7 thou/uL (1.40-6.50); %Basophils 0.5 % (0.0-1.0); %Eosinophils 0.4 % (0.0-10.0); %Lymphocytes 11.8 % (21.0-51.0); %Monocytes 2.4 % (0.0-10.0); %Neutrophils 84.8 % (42.0-75.0); Hemoglobin 10.4 g/dL (12.0-16.0); Mean Corpuscular HGB CONC 33.8 g/dL (32.0-36.0); Mean Corpuscular Hemoglobin 32.5 pg (27.0-31.0); Mean Corpuscular Volume 96.2 fL (78.0-98.0); Mean Platelet Volume 9.9 fL (7.4-10.4); Platelet Count 87 thou/uL (130-400); RBC Distribution Width 12.3 % (11.5-14.5); Red Blood Cell (RBC) Count 3.19 mill/uL (4.20-5.40); White Blood Cell (WBC) Count 6.7 thou/uL (4.8-10.8)
[2019-10-16 06:11] LABS: Anion Gap 11 mmol/L (10-20); BUN (Urea Nitrogen) 67 mg/dL (9.8-20.1); Calc. Creatinine Clearance 30 mL/min (70-130); Carbon Dioxide 16 mmol/L (23-31); Chloride 118 mmol/L (98-107); Estimated GFR-MDRD 36; Potassium 3.6 mmol/L (3.5-5.1); Sodium 141 mmol/L (136-145)
[2019-10-16 06:12] LABS: ALT (SGPT) 96 U/L (8-55); AST (SGOT) 84 U/L (5-34); Albumin 1.9 g/dL (3.4-4.8); Alkaline Phosphatase 58 U/L (40-110); Bilirubin, Total 0.6 mg/dL (0.2-1.2); Calcium 7.7 mg/dL (7.8-10.44); Glucose 147 mg/dL (83-110); Protein, Total 4.9 g/dL (6.0-8.3)
--- NOTE | 2019-10-16 08:28 | PDOC.FM ---
- Subjective Subjective: Rested well overnight. No acute events. Pt resting comfortably. reports continued confusion when pt is awake, she is unable to have logical conversation. - Objective MAR Reviewed: Yes Vital Signs & Weight: Vital Signs (12 hours) Temp Pulse Resp BP Pulse Ox 10/16/19 07:59 98.2 F 80 20 129/82 94 L 10/16/19 03:48 98.4 F 90 16 109/68 100 10/15/19 23:15 97.6 F 86 16 124/82 92 L Weight Admit Weight 53.524 kg Weight 56.331 kg Most Recent Monitor Data Heart Rate from ECG 76 NIBP 121/68 NIBP BP-Mean 85 Respiration from ECG 7 SpO2 100 I&O: 10/15/19 10/16/19 10/17/19 06:59 06:59 06:59 Intake Total 2676.3 900 Output Total 1257 1085 Balance 1419.3 -185 Result Diagrams: 10/16/19 05:33 10/16/19 05:33 Phys Exam - Physical Examination Constitutional: NAD HEENT: moist MMs, sclera anicteric Neck: no JVD, supple Respiratory: no wheezing, no rales Cardiovascular: RRR, no significant murmur Gastrointestinal: soft, non-tender Musculoskeletal: no edema, pulses present Neurological: moves all 4 limbs Deviation from normal: sleeping Skin: no rash, normal turgor Dx/Plan (1) DIMA (acute kidney injury) Code(s): N17.9 - ACUTE KIDNEY FAILURE, UNSPECIFIED Status: Acute (2) DVT (deep venous thrombosis) Code(s): I82.409 - ACUTE EMBOLISM AND THOMBOS UNSP DEEP VN UNSP LOWER EXTREMITY Status: Acute (3) Dementia Code(s): F03.90 - UNSPECIFIED DEMENTIA WITHOUT BEHAVIORAL DISTURBANCE Status: Acute (4) GERD (gastroesophageal reflux disease) Code(s): K21.9 - GASTRO-ESOPHAGEAL REFLUX DISEASE WITHOUT ESOPHAGITIS Status: Acute (5) HTN (hypertension) Code(s): I10 - ESSENTIAL (PRIMARY) HYPERTENSION Status: Acute (6) IBS (irritable bowel syndrome) Status: Acute (7) Septic shock Code(s): A41.9 - SEPSIS, UNSPECIFIED ORGANISM; R65.21 - SEVERE SEPSIS WITH SEPTIC SHOCK Status: Acute (8) Transaminitis Code(s): R74.0 - NONSPEC ELEV OF LEVELS OF TRANSAMNS & LACTIC ACID DEHYDRGNSE Status: Acute (9) UTI (urinary tract infection) Status: Acute - Plan Plan: Hypernatremia A- resolved, Most likely related to NS P- switch from D5 to LR today Hyperchoremic acidosis - as above Klebsiella bacteremia A- 1/2 positive, however same as urine cx. ID has been consulted P- Continue zosyn Hypoalbuminemia A- likely related to malnutrition. P- continue tube feeds, Dietary has been consulted. Septic Shock 2/2 UTI, resolved A- BP stable P- continue IV abx DVT LLE - Continue DOAC via NG Severe DIMA - Improving Thrombocytopenia - Stable Transaminitis -likely 2/2 septic shock. Improving Dementia -MD aware GERD -continue famotidine Code: chemical code only Dispo: Pt appears to be slowly improving, will appreciate ID recs. Pt will likely need SNF for deconditioning.
[2019-10-16] MEDS: Apixaban 5 MG TAB PER TUBE SCH ×2 (08:43→20:27)
[2019-10-16] MEDS: Lactated Ringer's 1,000 ML IV SCH ×2 (12:37→20:30)
--- NOTE | 2019-10-16 17:29 | CT ---
CT BRAIN WITHOUT CONTRAST: History: Progression of disorientation, altered mental status. Comparison: 10-12-19 FINDINGS: No evidence of acute infarct, hemorrhage, midline shift, or abnormal extraaxial fluid collections are seen. The ventricular size is stable and the basilar cisterns patent. The bony calvarium is intact. Visualized paranasal sinuses and mastoid air cells are well aerated. Cavum septum pellucidum et verga e is again noted. IMPRESSION: No CT evidence of acute intracranial process. POS: OFF
[2019-10-16] MEDS ORDERED: Sodium Bicarbonate Tab 325 MG TAB PER TUBE PRN (18:18)
[2019-10-16] MEDS ORDERED: Pancrelipase DR 12000 1 CAP FS PRN (18:18)
[2019-10-16] MEDS: Famotidine 20 MG TAB PO SCH (19:59)
[2019-10-16] MEDS: Famotidine/PF 20 mg/2ml Vial SLOW IVP SCH (20:27)
[2019-10-17] MEDS: Piperacillin/Tazobactam 2.25 GM in Sodium Chloride 0.9% 100 ML IVPB SCH ×3 (05:16→20:59)
[2019-10-17 06:35] LABS: ALT (SGPT) 82 U/L (8-55); AST (SGOT) 83 U/L (5-34); Albumin 1.8 g/dL (3.4-4.8); Alkaline Phosphatase 59 U/L (40-110); Anion Gap 11 mmol/L (10-20); BUN (Urea Nitrogen) 53 mg/dL (9.8-20.1); Bilirubin, Total 0.4 mg/dL (0.2-1.2); Calc. Creatinine Clearance 34 mL/min (70-130); Calcium 7.3 mg/dL (7.8-10.44); Carbon Dioxide 17 mmol/L (23-31); Chloride 119 mmol/L (98-107); Estimated GFR-MDRD 42; Glucose 158 mg/dL (83-110); Potassium 4.5 mmol/L (3.5-5.1); Protein, Total 4.8 g/dL (6.0-8.3); Sodium 142 mmol/L (136-145)
[2019-10-17 06:47] LABS: Hemoglobin 9.9 g/dL (12.0-16.0); Mean Corpuscular HGB CONC 33.1 g/dL (32.0-36.0); Mean Corpuscular Hemoglobin 32.2 pg (27.0-31.0); Mean Corpuscular Volume 97.2 fL (78.0-98.0); Mean Platelet Volume 9.9 fL (7.4-10.4); Platelet Count 105 thou/uL (130-400); RBC Distribution Width 12.5 % (11.5-14.5); Red Blood Cell (RBC) Count 3.06 mill/uL (4.20-5.40); White Blood Cell (WBC) Count 6.9 thou/uL (4.8-10.8)
[2019-10-17 06:50] LABS: Band 2 % (5-11); Hypochromia SLIGHT = 6-15 cells (100X) (0-5/hpf); Lymphocytes 15 % (21-51); MDiff Complete? YES; Monocytes 1 % (0-10); Neutrophil 82 % (42-75); Platelet Morphology Comment Appears Decreased
[2019-10-17] MEDS: Apixaban 5 MG TAB PER TUBE SCH ×2 (07:51→20:48)
[2019-10-17] MEDS: Lactated Ringer's 1,000 ML IV SCH ×2 (07:52→17:41)
--- NOTE | 2019-10-17 08:28 | PDOC.FM ---
- Subjective Subjective: Resting comfortably. reports mental status has not changed from yesterday. she still is confused and not back to baseline. he has not spoken with palliative care yet. - Objective Vital Signs & Weight: Vital Signs (12 hours) Temp Pulse Resp BP Pulse Ox 10/17/19 07:18 97.5 F L 88 20 118/75 97 Weight Admit Weight 53.524 kg Weight 56.926 kg Most Recent Monitor Data Heart Rate from ECG 76 NIBP 121/68 NIBP BP-Mean 85 Respiration from ECG 7 SpO2 100 I&O: 10/16/19 10/17/19 10/18/19 06:59 06:59 06:59 Intake Total 900 1840 Output Total 1085 1200 Balance -185 640 Result Diagrams: 10/18/19 06:01 10/18/19 06:01 Phys Exam - Physical Examination Constitutional: NAD HEENT: moist MMs Neck: no JVD, supple Respiratory: no wheezing, no rales Cardiovascular: RRR, no significant murmur Gastrointestinal: soft, non-tender Musculoskeletal: no edema, pulses present Neurological: non-focal Psychiatric: normal affect Deviation from normal: sleeping Skin: no rash, normal turgor Dx/Plan (1) DIMA (acute kidney injury) Code(s): N17.9 - ACUTE KIDNEY FAILURE, UNSPECIFIED Status: Acute (2) DVT (deep venous thrombosis) Code(s): I82.409 - ACUTE EMBOLISM AND THOMBOS UNSP DEEP VN UNSP LOWER EXTREMITY Status: Acute (3) Dementia Code(s): F03.90 - UNSPECIFIED DEMENTIA WITHOUT BEHAVIORAL DISTURBANCE Status: Acute (4) GERD (gastroesophageal reflux disease) Code(s): K21.9 - GASTRO-ESOPHAGEAL REFLUX DISEASE WITHOUT ESOPHAGITIS Status: Acute (5) HTN (hypertension) Code(s): I10 - ESSENTIAL (PRIMARY) HYPERTENSION Status: Acute (6) IBS (irritable bowel syndrome) Status: Acute (7) Septic shock Code(s): A41.9 - SEPSIS, UNSPECIFIED ORGANISM; R65.21 - SEVERE SEPSIS WITH SEPTIC SHOCK Status: Acute (8) Transaminitis Code(s): R74.0 - NONSPEC ELEV OF LEVELS OF TRANSAMNS & LACTIC ACID DEHYDRGNSE Status: Acute (9) UTI (urinary tract infection) Status: Acute - Plan Plan: Hypernatremia A- resolved, Most likely related to NS P- continue LR Hyperchoremic acidosis - as above Klebsiella bacteremia A- 1/2 positive, however same as urine cx. ID has been consulted P- Continue zosyn Hypoalbuminemia A- likely related to malnutrition. P- continue tube feeds, Dietary has been consulted. Septic Shock 2/2 UTI, resolved A- BP stable P- continue IV abx DVT LLE - Continue DOAC via NG Severe DIMA - Improving Thrombocytopenia - Stable Transaminitis -likely 2/2 septic shock. Improving Dementia -MD aware GERD -continue famotidine Code: chemical code only dispo: currently in process of deciding about PEG tube. dispo pending SNF placement with CM vs. hospice. Addendum - Attending - Attending Attestation Date/Time: 10/19/19 0618 I personally evaluated the patient and discussed the management with Dr. Kidd I agree with the History, Examination, Assessment and Plan documented above with any addition or exceptions noted below.
--- NOTE | 2019-10-17 16:57 | CON ---
DATE OF CONSULTATION: 10/17/2019 REASON FOR CONSULTATION: Urosepsis. HISTORY OF PRESENT ILLNESS: A 79-year-old, history of hypertension, systemic lupus erythematosus, and dementia, who developed worsening of her usual mental state and started misplacing things and she was referred to the emergency room somewhere. She was given AZO Standard and reportedly discharged and on the day of admission, the visiting nurse could not get a blood pressure and she had a temperature elevation, so she was admitted. Initial findings; heart rate 86, respiratory rate 22, temperature max 98.2, O2 saturation 97, and BP 90/58. The exam was remarkable for clear lungs. The abdomen is not tender and heart rate with regular rate without murmurs. Initial findings also with urinalysis greater than 50 wbc's, 500 leukocyte esterase. White cell count was 8.1, hemoglobin 11, platelets 68,000, with 18% bands. Chemistry with creatinine 4.26, which has nicely decreased over the past few days. She had an abdominal ultrasound, it is more of a renal ultrasound and this showed no evidence of hydronephrosis and probably a cyst in the right kidney. She had deep vein thrombosis identified in the left lower extremity common femoral, superficial femoral, and profunda femoral veins, which is nonocclusive, and brain CT with no acute intracranial process. One set of blood cultures with Klebsiella pneumoniae with a broad susceptibility profile. Same organism isolated from urine. The second set of blood cultures with no growth. Influenza testing was negative. Currently, the patient is awake, but does not interact with the examiner. She mumbles in unintelligible sounds. Does not follow commands. PAST MEDICAL HISTORY: Hypertension, systemic lupus with unknown organ specificity, GERD, IBD, dementia. She has had a left femur fracture with ORIF. FAMILY HISTORY: Hypertension, CVA, and deep vein thrombosis. SOCIAL HISTORY: Lives with family. Never smoker. No alcoholic beverage use. CURRENT MEDICATIONS: 1. P.r.n. medications. 2. Creon. 3. Eliquis. 4. Pepcid. 5. Zofran. 6. Zosyn. PHYSICAL EXAMINATION: VITAL SIGNS: T-max 98.2, blood pressure 118/75, pulse 88, respirations 20, O2 saturation 97. SKIN: Little bit of erythema in the left earlobe, very minor finding. Peripheral IV access and she has a Jacobo catheter, which was inserted upon admission. I's and O's have been positive until today. HEENT: Some element of wasting syndrome, temporal wasting noted. No lymphadenopathy. Sclerae are white. Pupils are constricted. Oral cavity was not remarkable. No jugular vein distention. LUNGS: Symmetric air entry without obvious crackles or wheezing. HEART: S1 and S2, regular rate without murmurs. ABDOMEN: Soft. Not distended or tender. No bladder distention. EXTREMITIES: Pulses are 1+ in dorsalis pedis. Plantar responses are flexor. No clonus. NEUROLOGIC: She is awake, but could not reply me with orientation questions and does not follow commands. LABORATORY DATA: Followup labs; white cell count is at 6.7, hemoglobin 10.4, MCV 96, platelets 87,000. Followup chemistry with a sodium of 142, creatinine 1.24. AST 83, ALT 82. IMAGING STUDIES: As discussed above. ASSESSMENT: 1. Dementia of uncertain etiology. 2. Mobility impairments. 3. Deep vein thrombosis, left side. 4. Pyelonephritis without obstruction. DISCUSSION: The mechanism of penetration is probably ascending route via the urethra and then colonization of bladder. She may have some element of neurogenic bladder or myogenic bladder with urinary retention, this is not clear in the past medical history. Once a voiding trial is attempted, then I would check her postvoid residual to make sure that it is not present. She does not have any other evidence of obstruction and she now has received 5 days of Zosyn and the only complication here for disposition is the reported allergy history. The first thing I would do is clarify with the family this allergy history, ideally one would like to use something like a quinolone, which would allow shortening of the duration of the administration down to not more than another 5 days as opposed to total 14 days with an alternate antimicrobial, for example if we continue Zosyn or switch her to ertapenem. If she truly has hypersensitivity reaction to quinolones, then we would have to switch her to ertapenem which is Invanz for outpatient administration once daily for another 9 days and that would require PICC line insertion or midline insertion. Job ID: [id number]
[2019-10-17] MEDS: Famotidine/PF 20 mg/2ml Vial SLOW IVP SCH (20:47)
[2019-10-17] MEDS: Famotidine 20 MG TAB PO SCH (20:48)
[2019-10-18] MEDS: Lactated Ringer's 1,000 ML IV SCH ×2 (03:51→13:49)
[2019-10-18] MEDS: Piperacillin/Tazobactam 2.25 GM in Sodium Chloride 0.9% 100 ML IVPB SCH ×3 (05:43→21:24)
[2019-10-18 06:30] LABS: #Eosinphils 0.1 thou/uL (0.0-0.7); #Lymphocytes 0.9 thou/uL (1.20-3.40); #Monocytes 0.3 thou/uL (0.11-0.59); #Neutrophils 4.2 thou/uL (1.40-6.50); %Basophils 0.5 % (0.0-1.0); %Eosinophils 1.7 % (0.0-10.0); %Lymphocytes 16.3 % (21.0-51.0); %Monocytes 4.9 % (0.0-10.0); %Neutrophils 76.6 % (42.0-75.0); Hemoglobin 6.3 g/dL (12.0-16.0); Mean Corpuscular HGB CONC 32.1 g/dL (32.0-36.0); Mean Corpuscular Hemoglobin 31.3 pg (27.0-31.0); Mean Corpuscular Volume 97.5 fL (78.0-98.0); Mean Platelet Volume 9.7 fL (7.4-10.4); Platelet Count 86 thou/uL (130-400); RBC Distribution Width 12.3 % (11.5-14.5); White Blood Cell (WBC) Count 5.5 thou/uL (4.8-10.8)
[2019-10-18 06:47] LABS: ALT (SGPT) 43 U/L (8-55); AST (SGOT) 43 U/L (5-34); Albumin 1.2 g/dL (3.4-4.8); Alkaline Phosphatase 43 U/L (40-110); Anion Gap 9 mmol/L (10-20); BUN (Urea Nitrogen) 43 mg/dL (9.8-20.1); Bilirubin, Total 0.3 mg/dL (0.2-1.2); Calc. Creatinine Clearance 45 mL/min (70-130); Calcium 6.6 mg/dL (7.8-10.44); Carbon Dioxide 18 mmol/L (23-31); Chloride 124 mmol/L (98-107); Estimated GFR-MDRD 56; Globulin 1.8 g/dL (2.4-3.5); Glucose 180 mg/dL (83-110); Potassium 3.6 mmol/L (3.5-5.1); Sodium 147 mmol/L (136-145)
[2019-10-18] MEDS: Apixaban 5 MG TAB PER TUBE SCH ×2 (08:19→20:26)
--- NOTE | 2019-10-18 08:27 | PDOC.FM ---
- Subjective Subjective: pt resting comfortably, she does not respond meaninfully to questions. is not in room. - Objective Vital Signs & Weight: Vital Signs (12 hours) Temp Pulse Resp BP Pulse Ox 10/18/19 07:27 97.9 F 102 H 19 164/88 H 98 Weight Admit Weight 53.524 kg Weight 58.684 kg Most Recent Monitor Data Heart Rate from ECG 76 NIBP 121/68 NIBP BP-Mean 85 Respiration from ECG 7 SpO2 100 I&O: 10/17/19 10/18/19 10/19/19 06:59 06:59 06:59 Intake Total 1840 1920 Output Total 1200 1800 Balance 640 120 Result Diagrams: 10/18/19 06:01 10/18/19 06:01 Phys Exam - Physical Examination Constitutional: NAD HEENT: moist MMs, sclera anicteric Neck: no JVD, supple Respiratory: no wheezing, clear to auscultation bilateral snoring makes the exam sub optimal Cardiovascular: RRR, no significant murmur Gastrointestinal: non-tender, no distention Musculoskeletal: no edema, pulses present Lymphatic: no nodes Skin: no rash, normal turgor Dx/Plan (1) DIMA (acute kidney injury) Code(s): N17.9 - ACUTE KIDNEY FAILURE, UNSPECIFIED Status: Acute (2) DVT (deep venous thrombosis) Code(s): I82.409 - ACUTE EMBOLISM AND THOMBOS UNSP DEEP VN UNSP LOWER EXTREMITY Status: Acute (3) Dementia Code(s): F03.90 - UNSPECIFIED DEMENTIA WITHOUT BEHAVIORAL DISTURBANCE Status: Acute (4) GERD (gastroesophageal reflux disease) Code(s): K21.9 - GASTRO-ESOPHAGEAL REFLUX DISEASE WITHOUT ESOPHAGITIS Status: Acute (5) HTN (hypertension) Code(s): I10 - ESSENTIAL (PRIMARY) HYPERTENSION Status: Acute (6) IBS (irritable bowel syndrome) Status: Acute (7) Septic shock Code(s): A41.9 - SEPSIS, UNSPECIFIED ORGANISM; R65.21 - SEVERE SEPSIS WITH SEPTIC SHOCK Status: Acute (8) Transaminitis Code(s): R74.0 - NONSPEC ELEV OF LEVELS OF TRANSAMNS & LACTIC ACID DEHYDRGNSE Status: Acute (9) UTI (urinary tract infection) Status: Acute - Plan Plan: Normocytic anemia A- possibly GI source, could be exacerbated by eliquis. hgb 6.5 this AM P- Will transfuse 1u prbc -will discuss FOBT with and goals of care if pt would want colonoscopy -iron studies Hypernatremia A- could be related to fluid status and recent initiation of tube feedings P- will monitor Klebsiella bacteremia A- 1/2 positive, however same as urine cx. ID has been consulted, recs appreciated P- Continue zosyn -will discuss levaquin allergy with per ID recs Hypoalbuminemia A- likely related to malnutrition. P- continue tube feeds, Dietary has been consulted. Septic Shock 2/2 UTI, resolved A- BP stable P- continue IV abx DVT LLE -Continue DOAC via NG Severe DIMA -resolved Thrombocytopenia -Stable Transaminitis -likely 2/2 septic shock. Improving Dementia -MD aware GERD -continue famotidine Code: chemical code only dispo: currently in process of deciding about PEG tube. dispo pending SNF placement with CM vs. hospice.
[2019-10-18 10:00] LABS: Iron Binding Capacity, Total 143 mcg/dL (265-497)
[2019-10-18 10:08] LABS: Iron 31 ug/dL (50-170)
[2019-10-18 10:25] LABS: Ferritin 1008.74 ng/mL (10-291)
--- NOTE | 2019-10-18 15:13 | PRG ---
DATE OF SERVICE: 10/18/2019 SUBJECTIVE: Ms. Munoz is unresponsive. She is obviously unable to protect her airway and is aspirating. Cachexia noted. OBJECTIVE: LUNGS: Sounds are coarse and she has rhonchi and crackles and large airways indicative of aspiration. HEART: S1 and S2. Tachycardia. ABDOMEN: Soft. She has indwelling Jacobo catheter. VITAL SIGNS: T-max 98.6, blood pressure 160/80, pulse 102, respirations 19, and O2 saturation 96. LABORATORY STUDIES: White cell count is at 5.5; hemoglobin 6.3, which is markedly down from previous, although no overt signs of bleeding witnessed. Chemistry with a creatinine 0.97. Microbiology with a coag pneumo which has a broad susceptibility profile. ASSESSMENT AND DISCUSSION: Dementia, mobility impairment, deep venous thrombosis, and pyelonephritis without obstruction. The patient is deteriorating, and she may have progression of her respiratory dysfunction. She is aspirating. She is unable to protect her airway, and she probably would be a candidate for hospice care. At this point in time, I would advise withholding feedings. Consult Palliative Care. Job ID: [id number]
[2019-10-18] MEDS: Famotidine/PF 20 mg/2ml Vial SLOW IVP SCH (20:17)
[2019-10-18] MEDS: Famotidine 20 MG TAB PO SCH (20:26)
[2019-10-19] MEDS: Lactated Ringer's 1,000 ML IV SCH ×2 (00:14→08:14)
[2019-10-19] MEDS: Piperacillin/Tazobactam 2.25 GM in Sodium Chloride 0.9% 100 ML IVPB SCH (05:21)
[2019-10-19 06:48] LABS: #Eosinphils 0.1 thou/uL (0.0-0.7); #Lymphocytes 1.2 thou/uL (1.20-3.40); #Monocytes 0.3 thou/uL (0.11-0.59); #Neutrophils 5.6 thou/uL (1.40-6.50); %Basophils 0.4 % (0.0-1.0); %Eosinophils 1.5 % (0.0-10.0); %Lymphocytes 16.7 % (21.0-51.0); %Monocytes 4.3 % (0.0-10.0); %Neutrophils 77.2 % (42.0-75.0); Hemoglobin 10.6 g/dL (12.0-16.0); Mean Corpuscular HGB CONC 32.6 g/dL (32.0-36.0); Mean Corpuscular Hemoglobin 30.4 pg (27.0-31.0); Mean Corpuscular Volume 93.2 fL (78.0-98.0); Mean Platelet Volume 9.1 fL (7.4-10.4); Platelet Count 158 thou/uL (130-400); RBC Distribution Width 14.2 % (11.5-14.5); White Blood Cell (WBC) Count 7.3 thou/uL (4.8-10.8)
[2019-10-19 07:47] LABS: ALT (SGPT) 58 U/L (8-55); AST (SGOT) 56 U/L (5-34); Albumin 1.8 g/dL (3.4-4.8); Alkaline Phosphatase 63 U/L (40-110); Anion Gap 13 mmol/L (10-20); BUN (Urea Nitrogen) 33 mg/dL (9.8-20.1); Bilirubin, Total 0.5 mg/dL (0.2-1.2); Calc. Creatinine Clearance 50 mL/min (70-130); Calcium 7.5 mg/dL (7.8-10.44); Carbon Dioxide 20 mmol/L (23-31); Chloride 122 mmol/L (98-107); Estimated GFR-MDRD 62; Glucose 97 mg/dL (83-110); Potassium 3.5 mmol/L (3.5-5.1); Protein, Total 4.8 g/dL (6.0-8.3); Sodium 151 mmol/L (136-145)
[2019-10-19 07:57] VITALS: BP 152/88; TEMP 98.4
[2019-10-19] MEDS: Apixaban 5 MG TAB PER TUBE SCH (08:10)
--- NOTE | 2019-10-19 08:56 | PDOC.FM ---
- Subjective Subjective: resting comfortably, no family in room. Unable to respond to questions. - Objective Vital Signs & Weight: Vital Signs (12 hours) Temp Pulse Resp BP Pulse Ox 10/19/19 07:54 98.4 F 94 20 152/88 H 97 10/19/19 04:32 98.5 F 89 16 147/87 H 98 10/18/19 23:57 98.4 F 79 14 125/78 98 Weight Admit Weight 53.524 kg Weight 58.8 kg Most Recent Monitor Data Heart Rate from ECG 76 NIBP 121/68 NIBP BP-Mean 85 Respiration from ECG 7 SpO2 100 I&O: 10/18/19 10/19/19 10/20/19 06:59 06:59 06:59 Intake Total 1920 500 Output Total 1800 450 Balance 120 50 Result Diagrams: 10/19/19 06:19 10/19/19 06:19 Phys Exam - Physical Examination Constitutional: NAD HEENT: sclera anicteric Neck: no JVD, supple Respiratory: no wheezing, clear to auscultation bilateral Cardiovascular: RRR, no significant murmur Gastrointestinal: soft, non-tender Musculoskeletal: pulses present not alert or oriented Skin: no rash, normal turgor Dx/Plan (1) DIMA (acute kidney injury) Code(s): N17.9 - ACUTE KIDNEY FAILURE, UNSPECIFIED Status: Acute (2) DVT (deep venous thrombosis) Code(s): I82.409 - ACUTE EMBOLISM AND THOMBOS UNSP DEEP VN UNSP LOWER EXTREMITY Status: Acute (3) Dementia Code(s): F03.90 - UNSPECIFIED DEMENTIA WITHOUT BEHAVIORAL DISTURBANCE Status: Acute (4) GERD (gastroesophageal reflux disease) Code(s): K21.9 - GASTRO-ESOPHAGEAL REFLUX DISEASE WITHOUT ESOPHAGITIS Status: Acute (5) HTN (hypertension) Code(s): I10 - ESSENTIAL (PRIMARY) HYPERTENSION Status: Acute (6) IBS (irritable bowel syndrome) Status: Acute (7) Septic shock Code(s): A41.9 - SEPSIS, UNSPECIFIED ORGANISM; R65.21 - SEVERE SEPSIS WITH SEPTIC SHOCK Status: Acute (8) Transaminitis Code(s): R74.0 - NONSPEC ELEV OF LEVELS OF TRANSAMNS & LACTIC ACID DEHYDRGNSE Status: Acute (9) UTI (urinary tract infection) Status: Acute - Plan Plan: dysphagia 2/2 delirium and advanced dementia A- discussed overall goals of care with . He desires to not have PEG. desires hospice consult which was ordered 10/18. P- f/u with and CM to facilitate inpt hospice. Normocytic anemia A- improved. possibly GI source, could be exacerbated by eliquis. does not want to pursue etiology P- will monitor Hypernatremia A- could be related to fluid status and recent initiation of tube feedings P- will monitor -would consider urine studies if decides to not do hospice Klebsiella bacteremia A- 2 positive, however same as urine cx. ID has been consulted, recs appreciated P- Continue zosyn -will discuss levaquin allergy with per ID recs -will plan for DCing ABX once hospice initiated Hypoalbuminemia A- likely related to malnutrition. P- continue tube feeds until hospice confirmed with and initiated. Septic Shock 2/2 UTI, resolved A- BP stable P- continue IV abx DVT LLE -Continue DOAC via NG Severe DIMA -resolved Thrombocytopenia -Stable Transaminitis -likely 2/2 septic shock. Improving Dementia -MD aware GERD -continue famotidine Code: chemical code only, need to discuss with about hospice and making pt DNAR
[2019-10-19 13:41] VITALS: BMI 23.7
--- NOTE | 2019-10-19 19:14 | DIS ---
DATE OF ADMISSION: 10/12/2019 DATE OF DISCHARGE: 10/19/2019 ADMITTING ATTENDING: Columba Chin MD DISCHARGE ATTENDING: Justino Monique MD RESIDENT: Justino Kidd MD CONSULTS: Infectious Disease, Andrea Mcwilliams MD; Pulmonology, Sim Samuel MD; palliative care and hospice. IMAGIN. On 10/12/2019, brain CT; impression, stable head CT, no acute findings. 2. On 10/16/2019, brain CT impression unchanged from last CT. DISCHARGE MEDICATIONS: 1. Acetaminophen 650 mg UT q.4 hours p.r.n. 2. p.r.n. DISCONTINUED MEDICATIONS: 1. MiraLAX. 2. Carvedilol. 3. Aspirin. PRIMARY DIAGNOSIS: Septic shock secondary to urinary tract infection and sepsis. SECONDARY DIAGNOSES: 1. Dysphagia. 2. Normocytic anemia. 3. Hypernatremia. 4. Klebsiella bacteremia. 5. Hypoalbuminemia. 6. Deep venous thrombosis. 7. Severe acute kidney injury. 8. Thrombocytopenia. 9. Transaminitis. 10. Dementia. 11. Gastroesophageal reflux disease. HISTORY OF PRESENT ILLNESS AND HOSPITAL COURSE: This is a 79-year-old female with history of advanced dementia, who comes to the hospital and was admitted for septic shock secondary to UTI infection. The patient was started on appropriate antibiotics and recovered quickly with fluid resuscitation. It was also found that the patient had bilateral femoral DVTs. The patient was started initially on heparin for blood thinners. The patient was thrombocytopenic, though platelet values never decreased less than 50. The patient was eventually switched to Eliquis for treatment of DVT, though she recovered quickly from UTI sepsis. The patient remained delirious and confused. At this point, it was learned from the family that she had been declining for the better part of the year and her mental functions were severely debilitated at baseline. She remained nonverbal for several days getting nutrition through an NG tube. Goals of care discussions were had with family, especially her and it was decided that she would be transitioned to the care of hospice. Arrangements were made for inpatient hospice and the patient was discharged to hospice at their inpatient facility. DISPOSITION: Stable. DISCHARGE INSTRUCTIONS: 1. Location: Inpatient hospice facility. 2. Activity: Bed rest strict. 3. Diet: Comfort feeds. 4. Followup: Followup not applicable. Job ID: [id number]
[2019-10-20 19:09] LABS: Folate,Hemolysate 403.7 ng/mL (Not Estab.); Hematocrit 29.3 % (34.0-46.6); RBC Folate Test Component 1378 ng/mL (>498)
[2019-10-21] MEDS ORDERED: Apixaban 5 MG TAB PER TUBE SCH (21:00)
== END 2019-10-19 18:12 | disposition hospice, inpatient (51) | DRG 871 ==
LOC: ERS 13:23 → CCU 18:18 → T4-A 10-15 09:33
PROVIDERS: ADMIT Family Medicine; ATTEND Family Medicine
PROC: 30233N1 Transfusion of Nonautologous Red Blood Cells into Peripheral Vein, Percutaneous Approach (ICD-10-PCS; principal; 2019-10-18)
DX: A41.59 Other Gram-negative sepsis (principal); R65.21 Severe sepsis with septic shock; E43 Unspecified severe protein-calorie malnutrition; N17.9 Acute kidney failure, unspecified; Z66 Do not resuscitate; Z51.5 Encounter for palliative care; E87.0 Hyperosmolality and hypernatremia; I82.412 Acute embolism and thrombosis of left femoral vein; E87.2 Acidosis; N12 Tubulo-interstitial nephritis, not specified as acute or chronic; R13.10 Dysphagia, unspecified; D64.9 Anemia, unspecified; E88.09 Other disorders of plasma-protein metabolism, not elsewhere classified; D69.6 Thrombocytopenia, unspecified; R74.0 Nonspecific elevation of levels of transaminase and lactic acid dehydrogenase [LDH]; K21.9 Gastro-esophageal reflux disease without esophagitis; F03.90 Unspecified dementia, unspecified severity, without behavioral disturbance, psychotic disturbance, mood disturbance, and anxiety; M32.9 Systemic lupus erythematosus, unspecified; K58.9 Irritable bowel syndrome, unspecified; Z88.1 Allergy status to other antibiotic agents; Z88.2 Allergy status to sulfonamides; Z68.23 Body mass index [BMI] 23.0-23.9, adult; Z79.899 Other long term (current) drug therapy; Z79.82 Long term (current) use of aspirin
CPT/HCPCS: 36415; 36430; 36556; 51702; 70450; 70460; 71045; 74018; 76770; 80053; 80202; 81003; 81015; 82274; 82607; 82728; 82747; 82805; 83540; 83550; 83605; 83735; 84100; 84145; 84484; 85025; 85610; 85730; 86850; 86900; 86901; 87040; 87077; 87086; 87149; 87186; 87804; 93005; 93010; 93970; 96360; 96361; 96365; 96367; 99292; C1751; J1644; J2543; J3370; J3475; J3480; J3490; J7050; P9016; S0028